=== PATIENT | male | born 1930 | race Caucasian/White ===

== ENCOUNTER 2017-09-11 11:32 | Observation (INO) | payer OTHER, SELFPAY ==
[~2017-09-11] VITALS: Ht 165.1 cm; Wt 73.5 kg
[~2017-09-11 11:32] MED LIST: GLIP5 PO; IODINE; IODIXANOL; LISI20 PO; METF500C PO; Omeprazole20 M1 PO; TAMS.4ER PO; ZOLP5 PO
[2017-09-11] MEDS ORDERED: GEMF600 PO (16:35)
[2017-09-12 05:10] LABS: BASOPHILS ABSOLUTE AUTO 0.04 K/mm3 (0.00-0.23); BASOPHILS PERCENT AUTO 1 % (0-2); EOSINOPHILS ABSOLUTE AUTO 0.12 K/mm3 (0.00-0.68); EOSINOPHILS PERCENT AUTO 2 % (0-6); Hematocrit 37.3 % (37.0-53.0); Hemoglobin 12.2 g/dL (13.5-17.5); IMMATURE GRAN ABSOLUTE AUTO 0.02 K/mm3 (0.00-0.10); IMMATURE GRAN PERCENT AUTO 0 % (0-1); LYMPHOCYTES ABSOLUTE AUTO 2.31 K/mm3 (0.84-5.20); LYMPHOCYTES PERCENT AUTO 30 % (21-46); MONOCYTES ABSOLUTE AUTO 0.89 K/mm3 (0.16-1.47); MONOCYTES PERCENT AUTO 11 % (4-13); Mean Corpuscular HGB 28.1 pg (26.0-34.0); Mean Corpuscular HGB Conc 32.7 g/dL (31.5-36.5); Mean Corpuscular Volume 86 fL (80-100); Mean Platelet Volume 9.6 fL (9.1-12.4); NEUTROPHILS ABSOLUTE AUTO 4.46 K/mm3 (1.96-9.15); NEUTROPHILS PERCENT AUTO 57 % (41-73); Platelet Count 208 K/mm3 (150-400); RDW Standard Deviation 52.4 fL (35.1-46.3); Red Blood Cell Count 4.34 M/mm3 (4.30-5.90); White Blood Cell Count 7.84 K/mm3 (4.00-11.30)
[2017-09-12 05:30] LABS: Alanine Aminotransfer (ALT/SGP 17 U/L (12-78); Albumin, Blood 2.6 g/dL (3.4-5.0); Albumin/Globulin Ratio 0.8 (0.8-1.8); Alk Phos 49 U/L (50-136); Anion Gap 7 mmol/L (6-16); Aspartate Aminotrans (AST/SGOT 17 U/L (12-37); Bilirubin, Total 0.5 mg/dL (0.1-1.0); Blood Urea Nitrogen 27 mg/dL (8-24); Bun/Creatinine Ratio 23.7 (12.0-20.0); CO2, Blood 23 mmol/L (21-32); Calcium, Blood 7.7 mg/dL (8.5-10.1); Chloride, Blood 113 mmol/L (98-108); Creatinine, Blood 1.14 mg/dL (0.60-1.20); Globulin, Blood 3.3 g/dL (2.2-4.0); Glomerular Filtration Rate >60 (60-); Glucose, Blood 112 mg/dL (70-99); Magnesium, Blood 1.7 mg/dL (1.6-2.4); Sodium, Blood 143 mmol/L (136-145); Total Protein, Blood 5.9 g/dL (6.4-8.2)
[2017-09-12] MEDS ORDERED: Lomotil Tablet1 EACH PO (10:00)
[2017-09-12] MEDS ORDERED: ONDA4ODT MM (10:01)
[2018-04-08] MEDS ORDERED: TAMS.4ER PO (14:01)
[2018-04-08] MEDS ORDERED: ACET325 PO (14:01)
[2018-04-08] MEDS ORDERED: PRED20 PO (14:07)
== END 2017-09-12 12:03 | disposition home or self-care (01) ==
LOC: ER 11:32 → MEDS 11:33 → ER 13:17 → MEDS 13:17 → ENPENDDIS 09-12 09:30 → MEDS 09-12 12:03
PROVIDERS: Internal Medicine
DX: E86.0 Dehydration (principal); N17.9 Acute kidney failure, unspecified; K52.9 Noninfective gastroenteritis and colitis, unspecified; I10 Essential (primary) hypertension; I48.91 Unspecified atrial fibrillation; E11.9 Type 2 diabetes mellitus without complications; N40.0 Benign prostatic hyperplasia without lower urinary tract symptoms; K21.9 Gastro-esophageal reflux disease without esophagitis; F03.90 Unspecified dementia, unspecified severity, without behavioral disturbance, psychotic disturbance, mood disturbance, and anxiety; Z96.651 Presence of right artificial knee joint; Z79.899 Other long term (current) drug therapy; Z91.041 Radiographic dye allergy status; Z88.8 Allergy status to other drugs, medicaments and biological substances; Z79.84 Long term (current) use of oral hypoglycemic drugs
CPT/HCPCS: 36415; 51702; 80053; 82947; 83735; 84484; 85025; 93005; 93010; 96372; 96374; 99285; G0378; J1650; J1815; J2405; J7120

== ENCOUNTER 2018-04-09 08:14 | Day surgery (SDC) | payer OTHER ==
[~2018-04-09] VITALS: Ht 165.1 cm; Wt 74.6 kg
[~2018-04-09 08:14] MED LIST changes: +ACET325 PO; +GEMF600 PO; +Lomotil Tablet1 EACH PO; +ONDA4ODT MM; +PRED20 PO
[2018-04-10] MEDS ORDERED: METO50ER PO (11:44)
[2018-04-10] MEDS ORDERED: CEPH500 PO (11:50)
[2018-04-10] MEDS ORDERED: METF500C PO (12:04)
== END 2018-04-10 15:54 | disposition home or self-care (01) ==
LOC: MHTC 08:14 → PCU 08:14 → MHTC 08:22 → PCU 11:39 → MHTC 04-10 15:54
PROC: 0JH606Z Insertion of Pacemaker, Dual Chamber into Chest Subcutaneous Tissue and Fascia, Open Approach (ICD-10-PCS; principal; 2018-04-09)
PROC: 02HK3JZ Insertion of Pacemaker Lead into Right Ventricle, Percutaneous Approach (ICD-10-PCS; principal; 2018-04-09)
PROC: 02H63JZ Insertion of Pacemaker Lead into Right Atrium, Percutaneous Approach (ICD-10-PCS; principal; 2018-04-09)
DX: I49.5 Sick sinus syndrome (principal); R00.1 Bradycardia, unspecified; E11.9 Type 2 diabetes mellitus without complications; I10 Essential (primary) hypertension
CPT/HCPCS: 33208; 36415; 71045; 83735; 93005; 93010; 99152; 99153; C1785; C1898; J0690; J1200; J1644; J1720; J2250; J3010; J3490; J7030; J7040; Q9967

== ENCOUNTER 2019-07-09 10:16 | Day surgery (SDC) | payer OTHER ==
[~2019-07-09] VITALS: Ht 165.1 cm; Wt 75.5 kg
[~2019-07-09 10:16] MED LIST changes: +ARTIFICIAL TEA1 EACH BOTHEYES; +CEPH500 PO; +Flomax0.4 MG PO; +Glucophage Xr750 MG PO; +HYDR1TAB94 PO; +Hydrochloroth12.5 MG PO; +LIDO700A20 TOP; +METO25ER PO; +METO50ER PO; +MULTI VITAMIN1 EACH PO; +TRAZ50 PO; +VOLTAREN100 GM TOP
[2019-07-09] MEDS ORDERED: PRED20 PO (12:12)
[2019-07-09] MEDS ORDERED: ACET325 PO (12:13)
--- NOTE | 2019-07-09 12:16 | NUR ---
07/09/19 1216 Mauricio Vazquez CALL LIGHT WITHIN REACH. IV ATTEMPT X2 BY MA. FIRST ATTEMPT INFILTRATED. SECOND IV ATTEMPT SUCCESSFUL. WILL CONTINUE TO MONITOR.
== END 2019-07-09 14:45 | disposition home or self-care (01) ==
LOC: ORSCSDS 10:16
PROVIDERS: Ophthalmology
PROC: 08QRXZZ Repair Left Lower Eyelid, External Approach (ICD-10-PCS; principal; 2019-07-09 13:00)
PROC: 08SR0ZZ Reposition Left Lower Eyelid, Open Approach (ICD-10-PCS; principal; 2019-07-09 13:00)
PROC: 0HX1XZZ Transfer Face Skin, External Approach (ICD-10-PCS; principal; 2019-07-09 13:00)
DX: H02.115 Cicatricial ectropion of left lower eyelid (principal); H16.202 Unspecified keratoconjunctivitis, left eye; I10 Essential (primary) hypertension; Z95.0 Presence of cardiac pacemaker; F17.210 Nicotine dependence, cigarettes, uncomplicated; Z79.899 Other long term (current) drug therapy
CPT/HCPCS: 82947; J0171; J2250; J2704; J3010; J7040

== ENCOUNTER 2019-10-22 10:41 | Inpatient (IN) | payer OTHER ==
[~2019-10-22] VITALS: Ht 165.1 cm; Wt 68.4 kg
[~2019-10-22 10:41] MED LIST changes: +ACET500 PO
[2019-10-22 11:13] LABS: BASOPHILS ABSOLUTE AUTO 0.03 K/mm3 (0.00-0.23); BASOPHILS PERCENT AUTO 1 % (0-2); EOSINOPHILS ABSOLUTE AUTO 0.04 K/mm3 (0.00-0.68); EOSINOPHILS PERCENT AUTO 1 % (0-6); Hematocrit 30.2 % (37.0-53.0); Hemoglobin 9.9 g/dL (13.5-17.5); IMMATURE GRAN ABSOLUTE AUTO 0.02 K/mm3 (0.00-0.10); IMMATURE GRAN PERCENT AUTO 0 % (0-1); LYMPHOCYTES ABSOLUTE AUTO 1.15 K/mm3 (0.84-5.20); LYMPHOCYTES PERCENT AUTO 18 % (21-46); MONOCYTES ABSOLUTE AUTO 0.45 K/mm3 (0.16-1.47); MONOCYTES PERCENT AUTO 7 % (4-13); Mean Corpuscular HGB 27.7 pg (26.0-34.0); Mean Corpuscular HGB Conc 32.8 g/dL (31.5-36.5); Mean Corpuscular Volume 85 fL (80-100); Mean Platelet Volume 11.1 fL (9.1-12.4); NEUTROPHILS ABSOLUTE AUTO 4.69 K/mm3 (1.96-9.15); NEUTROPHILS PERCENT AUTO 74 % (41-73); Platelet Count 224 K/mm3 (150-400); RDW Coefficient Variation 18.3 % (11.7-14.2); RDW Standard Deviation 56.6 fL (35.1-46.3); Red Blood Cell Count 3.57 M/mm3 (4.30-5.90); White Blood Cell Count 6.38 K/mm3 (4.00-11.30)
[2019-10-22 11:36] LABS: Troponin I 0.043 ng/mL (0.000-0.040)
[2019-10-22 11:39] LABS: Albumin, Blood 3.1 g/dL (3.4-5.0); Albumin/Globulin Ratio 0.9 (0.8-1.8); Bilirubin, Total 0.3 mg/dL (0.1-1.0); Bun/Creatinine Ratio 19.4 (12.0-20.0); Calcium, Blood 8.7 mg/dL (8.5-10.1); Creatinine, Blood 3.19 mg/dL (0.60-1.20); Globulin, Blood 3.6 g/dL (2.2-4.0); Potassium, Blood 3.8 mmol/L (3.5-5.5); Total Protein, Blood 6.7 g/dL (6.4-8.2)
[2019-10-22] MEDS ORDERED: B-121000 MC4 PO (12:15)
[2019-10-22] MEDS ORDERED: Vitamin D2000 UNIT PO (12:16)
[2019-10-22] MEDS ORDERED: ASCO500 PO (12:16)
[2019-10-22] MEDS ORDERED: Voltaren100 GM TOP (12:17)
[2019-10-22] MEDS ORDERED: MELA3 PO (12:18)
[2019-10-22] MEDS ORDERED: METAMUCIL POWD174 GM PO (12:19)
[2019-10-22] MEDS ORDERED: TORS10 PO (12:20)
[2019-10-22 13:05] LABS: Phosphorus, Blood 4.9 mg/dL (2.5-4.9); Uric Acid, Blood 11.5 mg/dL (3.5-7.2)
--- NOTE | 2019-10-22 18:34 | NUR ---
PT RECEIVED TO ROOM. PT PLEASANT COOP A/O. REMAINS SOB WITH ANY EXERTION. H/R REG, MURMER NOTED. NO TELE. LUNGS CLEAR UPPER, CRACKLES MID AND LOWER. RESP EASY, UNLABORED ON R.A/ BT X4 LST AM YEST. FORMED. VOIDS PER URINAL OR SBA TO BATHROOM. BED IN LOW POSITION, CALL LITE IN REACH, CALLS APPROP
--- NOTE | 2019-10-22 20:52 | NUR ---
PATIENT N/V AND SOB WITH EXERTION DURING THE EVENT. IV ZOFRAN GIVEN PER EMAR. PUT ON 2L O2 NC AT THIS TIME. WILL CONTINUE TO MONITOR.
[2019-10-22 21:50] LABS: Source, Urine Catheter
[2019-10-22 21:56] LABS: Bilirubin, Urine Neg (Neg); Blood, Urine 1+ (Neg); Glucose Qualitative, Urine Neg (Neg); Ketones, Urine Neg (Neg); Leukocyte Esterase, Urine 2+ (Neg); Nitrite, Urine Neg (Neg); Protein, Urine 2+ (Neg); Urobilinogen, Urine NORM (Normal)
--- NOTE | 2019-10-22 21:58 | NUR ---
URINE SAMPLE COLLECTED AND SENT TO LAB.
[2019-10-22 22:04] LABS: Appearance, Urine Hazy (Clear); Color, Urine Yellow (P-Yellow)
[2019-10-22 22:06] LABS: Bacteria Few /hpf; Red Blood Cells, Urine 0-2 /hpf (0-2); Squamous Epithelial Cells Rare /hpf (Few); White Blood Cells, Urine TNTC /hpf (0-5)
--- NOTE | 2019-10-23 01:15 | NUR ---
PATIENT HAVING N/V FOR SECOND TIME THIS SHIFT. IV ZOFRAN GIVEN PER EMAR. SOB W/EXERTION. ON 2L O2 NC.
--- NOTE | 2019-10-23 03:35 | NUR ---
HOSPITALIST ORDERED IV REGLAN 10MG Q6 PRN TO HAVE IN ADDITION TO PRN ZOFRAN FOR N/V.
--- NOTE | 2019-10-23 03:36 | NUR ---
SHIFT SUMMARY PATIENT WAS N/V X TWO AND IV ZOFRAN GIVEN PER EMAR. PATIENT BECOMES ANXIOUS AND SOB DURING EVENT. PATIENT PUT ON 2L O2 NC, RA BASELINE. PATIENT REPORTS HE GET RELIEF SITTING AND RECLINER BROUGHT IN AND CHAIR ALARM ACTIVATED. BACK IN BED WHEN GETTING TIRED. MELATONIN 5 MG GIVEN FOR INSOMNIA. URINE SAMPLE COLLECTED AND SENT TO LAB. PIVS REMAIN INTACT. AXOX 3 AND SBA TO BR. USES URINAL AT BEDSIDE. COOPERATIVE WITH CARE. DENIES PAIN. CALL LIGHT IN REACH. BED IN LOWEST POSITION AND ALARM ACTIVATED, IMPULSIVE. WILL CONTINUE TO MONITOR UNTIL DAY SHIFT NURSE ASSUMES CARE.
--- NOTE | 2019-10-23 04:30 | NUR ---
PATIENT CONFUSED ASKING WHEN HE COULD PUT HIS PANTS BACK ON AND GO VISITING. PATIENT WANTS TO SIT ON SIDE OF BED T/O SHIFT. DENIES N/V AT THIS TIME. PATIENT REORIENTED TO HOSPITAL. BED ALARM ACTIVATED. CALL LIGHT IN REACH.
[2019-10-23 05:05] LABS: BASOPHILS ABSOLUTE AUTO 0.01 K/mm3 (0.00-0.23); BASOPHILS PERCENT AUTO 0 % (0-2); EOSINOPHILS PERCENT AUTO 0 % (0-6); Hematocrit 30.9 % (37.0-53.0); Hemoglobin 10.2 g/dL (13.5-17.5); IMMATURE GRAN ABSOLUTE AUTO 0.05 K/mm3 (0.00-0.10); IMMATURE GRAN PERCENT AUTO 1 % (0-1); LYMPHOCYTES ABSOLUTE AUTO 0.53 K/mm3 (0.84-5.20); LYMPHOCYTES PERCENT AUTO 7 % (21-46); MONOCYTES ABSOLUTE AUTO 0.42 K/mm3 (0.16-1.47); MONOCYTES PERCENT AUTO 5 % (4-13); Mean Corpuscular HGB 27.2 pg (26.0-34.0); Mean Platelet Volume 11.4 fL (9.1-12.4); NEUTROPHILS ABSOLUTE AUTO 7.16 K/mm3 (1.96-9.15); NEUTROPHILS PERCENT AUTO 88 % (41-73); Platelet Count 248 K/mm3 (150-400); RDW Coefficient Variation 18.2 % (11.7-14.2); RDW Standard Deviation 55.2 fL (35.1-46.3); Red Blood Cell Count 3.75 M/mm3 (4.30-5.90); White Blood Cell Count 8.17 K/mm3 (4.00-11.30)
[2019-10-23 05:07] LABS: Mean Corpuscular Volume 82 fL (80-100)
[2019-10-23 05:34] LABS: Magnesium, Blood 1.9 mg/dL (1.6-2.4)
[2019-10-23 05:44] LABS: Albumin/Globulin Ratio 0.8 (0.8-1.8); Bilirubin, Total 0.5 mg/dL (0.1-1.0); Calcium, Blood 8.5 mg/dL (8.5-10.1); Creatinine, Blood 3.37 mg/dL (0.60-1.20); Globulin, Blood 3.8 g/dL (2.2-4.0); Potassium, Blood 4.2 mmol/L (3.5-5.5); Total Protein, Blood 6.8 g/dL (6.4-8.2)
--- NOTE | 2019-10-23 11:01 | NUR ---
Spiritual care visit conducted. Patient is sitting on a chair and alert. 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 Patient also talks about his fears of not having many months to live. I listen empathically and provide companionship, anxiety containment and prayer. Patient responds well and shows signs of reduced stress. I will continue to remain available to patient and family.
--- NOTE | 2019-10-23 12:37 | NUR ---
PT IS ALERT, COOPERATIVE, BUT CONFUSED AND ATTEMPTS TO STAND WITHOUT ASSISTANCE. PT ASKS REPEATEDLY WHEN HE CAN GO HOME. PT ATE PART OF BREAKFAST THEN SPAT UP SOME FOOD, STATES "I THREW UP MY FOOD". DENIES NAUSEA. AT LUNCH PT ALSO SPITS UP SOME FOOD, DENIES NAUSEA. PT C/O "PRESSURE" MID-CHEST, STATES HAS BEEN ONGOING FOR OVER 2 DAYS, DENIES ANY CHANGE TODAY. DENIES PAIN. PT WAS PUT ON 2 LPM O2 LAST NIGHT FOR C/O SOB, HOWEVER TODAY PT DENIES SOB, THREW CANNULA ON GROUND. O2 LEFT OFF PT, RN NOTIFIED.
--- NOTE | 2019-10-23 12:41 | NUR ---
4 FAMILY MEMBERS IN ROOM WITH PT, ASKING FOR UPDATES ABOUT ETA TO PT DISCHARGE. RN NOTIFIED, WILL CONTACT CARE MANAGEMENT TO UPDATE FAMILY.
--- NOTE | 2019-10-23 13:57 | NUR ---
Clinical Visit; Met with pt, family and social studies teacher care information associate, Kaur. Discussed current illness and trajectory of disease process. They are agreeable to hospice services after some discussion. Nate is the pt's stepson and the closest family member to the pt and his . He has concerns regarding the pt's decline of function and his mother's emotional and physical ability to care for the pt when he begins getting worse. [facility] with [facility]. At this time, family would like pt to go home. Placement may be re-evaluated at a later time through the hospice agency psychotherapist social worker if things become unsafe for the pt or pt's . Equipment, philosophy of hospice discussed. Family has decided [facility] for hospice services. Nate would like to be notified of the enrollment date and time. His cell phone number is [phone] and his email address is [email or web address]. He expresses concern about his mother's memory. At this time, pt has been doing all the cooking and preparing of food in the home and has been taking care of her for a long while. Palliative care to remain available. The best plan may be discharge to facility for hospice care and [facility], however, family would like to try at home for a while. Card provided to Nate for palliative care contact information if more questions or concerns arise.
[2019-10-23] MEDS ORDERED: LORA2L PO (15:13)
[2019-10-23] MEDS ORDERED: MORP20L PO (15:14)
--- NOTE | 2019-10-23 16:59 | NUR ---
1640 PT DISCHARGED HOME WITH HOSPICE ACCOMPANIED AND DRIVEN BY SON AND . PT ESCORTED TO ENTRANCE VIA W/C BY SECURITY COORDINATOR. IV'S REMOVED. D/C PAPERWORK REVIEWED WITH PT, SON AND . HARD SCRIPTS WITH D/C PACKET. LUNGS CLEAR. NO NEW CHANGES OR CONCERNS.
== END 2019-10-23 16:41 | disposition hospice, home (50) | DRG 682 ==
LOC: ER 10:41 → ICUW 13:18 → MEDS 17:20
PROVIDERS: Emergency Medicine; Nurse Practitioner Acute Care; ADMIT Internal Medicine
DX: N17.9 Acute kidney failure, unspecified (principal); I50.23 Acute on chronic systolic (congestive) heart failure; I47.2 Ventricular tachycardia; I42.0 Dilated cardiomyopathy; I11.0 Hypertensive heart disease with heart failure; N40.0 Benign prostatic hyperplasia without lower urinary tract symptoms; I27.20 Pulmonary hypertension, unspecified; I08.1 Rheumatic disorders of both mitral and tricuspid valves; I49.5 Sick sinus syndrome; I44.7 Left bundle-branch block, unspecified; K21.9 Gastro-esophageal reflux disease without esophagitis; I71.2 Thoracic aortic aneurysm, without rupture; E11.9 Type 2 diabetes mellitus without complications; Z66 Do not resuscitate; E86.0 Dehydration; Z88.8 Allergy status to other drugs, medicaments and biological substances; K52.9 Noninfective gastroenteritis and colitis, unspecified; E83.42 Hypomagnesemia; Z79.84 Long term (current) use of oral hypoglycemic drugs
CPT/HCPCS: 36415; 36416; 71045; 80053; 81001; 82533; 82550; 82947; 83605; 83735; 83880; 84100; 84443; 84484; 84550; 85025; 87086; 93005; 93010; 93306; A9270-GY; J1644; J2405; J3475; J7030